=== PATIENT | female | born 1955 | race Caucasian/White ===

== ENCOUNTER 2023-09-11 11:18 | Emergency (ER) | payer MEDICARE, OTHER ==
[~2023-09-11] VITALS: Ht 170.2 cm; Wt 104.3 kg
[2023-09-11 11:30] VITALS: TEMP 98.2
[2023-09-11] MEDS ORDERED: BENZONATATE200 MG PO (11:56)
[2023-09-11] MEDS ORDERED: AZITHROMYCIN250 MG PO (11:56)
[2023-09-11] MEDS ORDERED: DEXAMETHASONE SOD PHOS INJ 4 MG/ML SDV ONE (11:56)
[2023-09-11] MEDS ORDERED: VENTOLIN HFA18 GM INH (11:56)
[2023-09-11] MEDS ORDERED: DEXAMETHASONE PHOS 4MG/ML 5ML MULTIDOSE VIAL INJ ONE (12:00)
[2023-09-11 12:04] VITALS: PULSE 100; RESP 15; O2SAT 92
[2023-09-11] MEDS: DEXAMETHASONE SOD PHOS INJ 4 MG/ML SDV INJ ONE (12:07)
[2023-09-11] MEDS: ALBUTEROL/IPRATROPIUM 3 ML NEB NEB ONE (12:16)
== END 2023-09-11 12:35 | disposition home or self-care (01) ==
LOC: FSED 11:24
DX: R50.9 Fever, unspecified (principal); J06.9 Acute upper respiratory infection, unspecified; J20.9 Acute bronchitis, unspecified; R05.9 Cough, unspecified; R00.0 Tachycardia, unspecified; Z11.52 Encounter for screening for COVID-19
CPT/HCPCS: 0223U; 83518; 87400; 99283; J1100